=== PATIENT | female | born 1995 | race Caucasian/White ===

== ENCOUNTER → 2017-05-01 20:00 | Observation (INO) ==
[2017-05-01 15:59] LABS: Bilirubin,Urine Small (Negative); Blood,Urine Negative (Negative); Clarity,Urine Cloudy (Clear); Color,Urine Dark Yellow (Yellow); Glucose,Urine (UA) Normal (Normal); Ketones,Urine 15 mg/dL (Negative); Leukocyte Esterase,Urine Small (Negative); Nitrite,Urine Negative (Negative); PH,Urine 6.5 pH Units (5.0-8.0); Protein,Urine Trace mg/dL (Neg-Trace); Specific Gravity,Urine 1.029 (1.010-1.025); Urobilinogen,Urine Normal (Normal)
[2017-05-01 16:00] LABS: Bacteria,Urine Moderate per hpf (None-Few); Hyaline Casts,Urine None Seen per lpf (None-Few); Squamous Epithelial Cell,Urine Many per lpf (None-Few); WBC,Urine 15-30 per hpf (0-3)
--- NOTE | 2017-05-01 17:07 | OB/GYN History & Physical ---
Date of Encounter: 05/01/17 Time of Encounter: 17:05 Assessment and Plan (1) premature rupture of membranes (PPROM) with unknown onset of labor Current visit: Yes Status: Acute Plan to transfer to [facility] for PPROM. [place]estone now. Begin magnesium infusion. Indomethacin for tocolysis PCN for GBS ppx per M request. Transfer to [facility] labor and delivery. Accepting physician is Ronan Soto. (2) 26 weeks gestation of Current visit: Yes Status: Acute (3) Hodgkins lymphoma Current visit: Yes Status: Acute Qualifiers: Hodgkin lymphoma type: unspecified type Lymphoma site: neck Qualified Code(s): C81.91 - Hodgkin lymphoma, unspecified, lymph nodes of head, face, and neck (4) Nausea and vomiting during Current visit: No Status: Acute History of Present Illness Chief complaint: leaking fluid HPI: Ms. Chinchilla is a 21 year old female presenting at 26 weeks 2 days gestation with c/o a gush of fluid when she vomited this afternoon around 1345. She states she was having some cramping earlier in the day and then had the one episode of vomiting with a gush of clear fluid. No cramping, leaking, or vomiting since. Good FM. No VB. She received care with Dr. Barrios and has an EDC of 08/05/17 by LMP confirmed by first trimester ultrasound. This has been complicated by Hodkins Lymphoma for which she was supposed to start chemo tomorrow. No other complications. Blood type O positive Chlam/Lorne negative HIV negative RPR negative Hep B sag negative Hep C negative Rubella immune Normal anatomy ultrasound Past Med Surg Social Fam HX - Past Medical History Medical history: asthma, cancer, kidney stones, other Psychiatric history: depression - Past Surgical History Surgical History: cholecystectomy - Social History Smoking Status: Never smoker Smokeless Tobacco Status: No Alcohol use: none Drug use: none - Family History Father History Unknown: Yes Adopted: No Living Status: Hx Family Cardiac Disorders: No Hx Family Respiratory Disorders: No Hx Family Cancer: No Hx Family GI Disorders: No Hx Family Endocrine Disorder: No Hx Family Neuromuscular Disorders: No Hx Family Neurologic Disorders: No Hx Family HEENT Disorders: No Hx Family Autoimmune Disorders: No Obstetrical History - Pregnancies : 2 Para: 1 Term: 1 : 0 Ab's: 0 Livin Medications and Allergies Vit Calc,Iron,Folic [ Vitamins] 2 tab PO DAILY 05/01/17 [ History] 3 Allergy/AdvReac Type Severity Reaction Status Date / Time codeine Allergy Fever Verified 05/01/17 15:33 promethazine Allergy Fever Verified 05/01/17 15:33 Review of System OB All systems PM: reviewed and no additional remarkable complaints except as stated Exam - Constitutional Constitutional: well developed, well nourished, no acute distress - HEENT HEENT: Mucus Membranes Moist - Neck Neck exam: lymphadenopathy - Lungs Respiratory exam: CTAB - Cardiovascular Cardiovascular exam: RRR - Abdomen Abdomen: Present: gravid, non tender - Extremities Extremities exam: normal inspection - Vulva Vulva: bilateral: normal - Vagina Vagina: Present: normal moisture - Cervix Dilation: 0 Effacement: 0 Station: -3 - Anus/Rectum Anus/Rectum: Present: normal perianal skin - Comments Comments: SSE with scant clear discharge in vault, negative nitrazine, positive fern Results Abnormal lab results Urine Clarity Cloudy (Clear) A 05/01/17 15:46 Ur Specific Early 1.029 (1.010-1.025) H 05/01/17 15:46 Urine Ketones 15 mg/dL (Negative) H 05/01/17 15:46 Urine Bilirubin Small (Negative) H 05/01/17 15:46 Ur Leukocyte Esterase Small (Negative) H 05/01/17 15:46 Urine Microscopic WBC 15-30 per hpf (0-3) H 05/01/17 15:46 Ur Squamous Epith Cells Many per lpf (None-Few) H 05/01/17 15:46 Urine Bacteria Moderate per hpf (None-Few) H 05/01/17 15:46 Ur Culture Indicated? YES (NO) A 05/01/17 15:46 All other labs normal. - VTE Reasons for not Prescribing Prophylaxis: Treatment not Indicated - Low risk for VTE
[2017-05-01 17:49] LABS: Basophils # 0.1 K/mcL (0.0-0.2); Basophils % 0.5 %; Hematocrit 36.3 % (35.3-44.9); Immature Granulocytes % 1.2 % (0-4); Lymphocytes # 1.8 K/mcL (0.6-4.6); Lymphocytes % 12.3 %; Mean Corpuscular HGB Conc 33.1 g/dL (31.6-35.5); Mean Corpuscular Hemoglobin 27.5 pg (28.0-33.3); Mean Corpuscular Volume 83.3 fL (83.0-100.0); Mean Platelet Volume 9.4 fL (9.4-12.4); Monocytes # 0.7 K/mcL (0.0-1.3); Monocytes % 4.8 %; Neutrophils # 11.9 K/mcL (1.6-8.9); Platelet Count 347 K/mcL (140-400); Red Blood Count 4.36 M/mcL (3.82-4.97); Red Cell Distribution Width 13.3 % (11.5-14.5); Segmented Neutrophils % 81.2 %
[~2017-05-01 20:00] MED LIST: Amoxicillin 500 MG CAPSULE PO SCH; Ampicillin 2 GM in 0.9 % Sodium Chloride Mini Bag 100 ML IVPB SCH; Azithromycin 250 MG TABLET PO ONE; Betamethasone Acet/SodPhos 6 MG/ML MDV IM SCH; Calcium Gluconate 1,000 MG/10 ML VIAL IVPB ONE; Indomethacin 25 MG CAPSULE PO ONE; Magnesium Sulfate 20 gm/500mL 20 GM/500 ML IV.SOLN IVC SCH; Penicillin G Potassium 5,000,000 UNIT in D5% in Water (Mini-Bag+) 100 ML IVPB ONE; Ringers Solution, Lactated 1,000 ML IVC SCH
== END ==
LOC: 1NENULAB
PROVIDERS: ADMIT Student in an Organized Health Care Education/Training Program; ATTEND Student in an Organized Health Care Education/Training Program

== ENCOUNTER → 2017-05-29 23:56 | Observation (INO) ==
[2017-05-29 23:17] LABS: Bilirubin,Urine Negative (Negative); Blood,Urine Negative (Negative); Clarity,Urine Clear (Clear); Color,Urine Dark Yellow (Yellow); Glucose,Urine (UA) 500 mg/dL (Normal); Ketones,Urine Negative (Negative); Leukocyte Esterase,Urine Negative (Negative); Nitrite,Urine Negative (Negative); Protein,Urine Trace mg/dL (Neg-Trace); Specific Gravity,Urine 1.029 (1.010-1.025); Urobilinogen,Urine Normal (Normal)
[2017-05-29 23:22] LABS: Bacteria,Urine None Seen per hpf (None-Few); Hyaline Casts,Urine None Seen per lpf (None-Few); RBC,Urine 0-3 per hpf (0-3); Squamous Epithelial Cell,Urine Many per lpf (None-Few); WBC,Urine 0-3 per hpf (0-3)
--- NOTE | 2017-05-29 23:49 | Discharge Summary ---
Date of Encounter: 05/29/17 Time of Encounter: 23:49 - Discharge Diagnosis (1) 31 weeks gestation of Priority: Primary Status: Acute Comments: Admitted to observation for labor eval and NST for decreased movement Follow up with OB physician tomorrow. (2) Decreased movement during in third trimester, antepartum Priority: Secondary Status: Acute Comments: Non stress test Qualifiers: Fetus number: single or unspecified fetus Qualified Code(s): O36.8130 - Decreased movements, third trimester, not applicable or unspecified (3) Non-stress test reactive Priority: Secondary Status: Acute Comments: FHR 140bpm, moderate variability, + 10x10 accels, no decels. Category I tracing. - Discharge Medications Home Medications: Vit Calc,Iron,Folic [ Vitamins] 2 tab PO DAILY 05/01/17 [ History] Allergies/Adverse Reactions: 3 Allergy/AdvReac Type Severity Reaction Status Date / Time codeine Allergy Fever Verified 05/01/17 15:33 promethazine Allergy Fever Verified 05/01/17 15:33 Data Procedures and tests throughout hospitalization: Laboratory Tests 05/29/17 23:00 Urine Color Dark Yellow Urine Clarity Clear Urine pH 7.0 Ur Specific [place] 1.029 H Urine Protein Trace Urine Glucose (UA) 500 H Urine Ketones Negative Urine Blood Negative Urine Nitrite Negative Urine Bilirubin Negative Urine Urobilinogen Normal Ur Leukocyte Esterase Negative Urine Microscopic RBC 0-3 Urine Microscopic WBC 0-3 Ur Squamous Epith Cells Many H Urine Bacteria None Seen Hyaline Casts None Seen Ur Culture Indicated? NO Labs on day of discharge: Labs from last 24 hours 05/29/17 23:00 Urine Color Dark Yellow Urine Clarity Clear Urine pH 7.0 Ur Specific [place] 1.029 H Urine Protein Trace Urine Glucose (UA) 500 H Urine Ketones Negative Urine Blood Negative Urine Nitrite Negative Urine Bilirubin Negative Urine Urobilinogen Normal Ur Leukocyte Esterase Negative Urine Microscopic RBC 0-3 Urine Microscopic WBC 0-3 Ur Squamous Epith Cells Many H Urine Bacteria None Seen Hyaline Casts None Seen Ur Culture Indicated? NO Date of admission: 05/29/17 22:57 Discharging clinician: Aurora Álvarez Anticipated date of discharge: 05/29/17 - Patient Status Disposition: Home, Self-Care Condition: Good Functional capacity at discharge: independent ambulation - Discharge Instructions Follow Up With: Nicola Fields MD [Non-Partnered Physician] - Additional Instructions: Follow up with OB tomorrow. - Diet and Activity Activity: resume usual activities as tolerated Diet: advance to your usual diet Hospital Course [facility] Time Attestation: Total time spent providing and/or coordinating discharge services: Exam - Constitutional Vitals: Temp Resp 97.3 F L 16 05/29/17 23:01 05/29/17 23:01 General appearance IM: A&O X 3 - Respiratory Respiratory exam: Present: CTAB - Cardiovascular Cardiovascular exam IM: Present: RRR, +S1, +S2 - GI/Abdominal GI/Abdominal exam IM: normal bowel sounds - Rectal Rectal exam: deferred - Extremities Exam Extremities exam IM: Present: normal capillary refill, normal inspection - Neurological Exam Neurological exam: alert, oriented X3
[2017-05-30 01:45] LABS: Amphetamine Screen,Urine Negative ng/mL (Cutoff=1000); Barbiturate Screen,Urine Negative ng/mL (Cutoff=200); Benzodiazepines Screen,Urine Negative ng/mL (Cutoff=200); Cannabinoid Screen,Urine Negative ng/mL (Cutoff = 50); Cocaine Screen,Urine Negative ng/mL (Cutoff= 300); Opiate Screen,Urine Negative ng/mL (Cutoff=300); Phencyclidine Screen,Urine Negative ng/mL (Cutoff=25)
== END | disposition home or self-care (01) ==
LOC: 1NENULAB
PROVIDERS: ADMIT Student in an Organized Health Care Education/Training Program; ATTEND Student in an Organized Health Care Education/Training Program

== ENCOUNTER 2020-09-21 16:19 | Observation (INO) ==
[2020-09-21 17:17] LABS: Bacteria,Urine Few per hpf (None-Few); Bilirubin,Urine Negative (Negative); Blood,Urine Large (Negative); Clarity,Urine Turbid (Clear); Color,Urine Yellow (Yellow); Glucose,Urine (UA) 30 mg/dL (Normal); Ketones,Urine Negative (Negative); Leukocyte Esterase,Urine Large (Negative); Mucus,Urine Few per lpf (None-Few); Nitrite,Urine Negative (Negative); PH,Urine 6.5 pH Units (5.0-8.0); Protein,Urine 50 mg/dL (Neg-Trace); RBC,Urine TNTC per hpf (0-3); Squamous Epithelial Cell,Urine Few per hpf (None-Few); Urobilinogen,Urine Normal (Normal); WBC,Urine TNTC per hpf (0-3)
[2020-09-21 20:27] LABS: Candida DNA DETECTED (Not Detect); Gardnerella DNA Not Detected (Not Detect); Trichomonas DNA Not Detected (Not Detect)
== END 2020-09-21 18:03 | disposition home or self-care (01) ==
LOC: 1NENULAB
PROVIDERS: ADMIT Obstetrics & Gynecology; ATTEND Obstetrics & Gynecology

== ENCOUNTER → 2020-11-21 17:52 | Observation (INO) ==
[2020-11-21 10:26] LABS: Bacteria,Urine Few per hpf (None-Few); Bilirubin,Urine Negative (Negative); Blood,Urine Negative (Negative); Clarity,Urine Turbid (Clear); Color,Urine Yellow (Yellow); Glucose,Urine (UA) Normal (Normal); Ketones,Urine 20 mg/dL (Negative); Leukocyte Esterase,Urine Large (Negative); Mucus,Urine Few per lpf (None-Few); Nitrite,Urine Negative (Negative); PH,Urine 7.5 pH Units (5.0-8.0); Protein,Urine 30 mg/dL (Neg-Trace); Specific Gravity,Urine 1.022 (1.010-1.025); Squamous Epithelial Cell,Urine Moderate per hpf (None-Few); Urobilinogen,Urine Normal (Normal)
[~2020-11-21 17:52] MED LIST changes: -Amoxicillin 500 MG CAPSULE PO SCH; -Ampicillin 2 GM in 0.9 % Sodium Chloride Mini Bag 100 ML IVPB SCH; -Azithromycin 250 MG TABLET PO ONE; -Betamethasone Acet/SodPhos 6 MG/ML MDV IM SCH; -Calcium Gluconate 1,000 MG/10 ML VIAL IVPB ONE; -Indomethacin 25 MG CAPSULE PO ONE; -Magnesium Sulfate 20 gm/500mL 20 GM/500 ML IV.SOLN IVC SCH; +Ondansetron ODT 4 MG TAB.RAPDIS SL ONE; -Penicillin G Potassium 5,000,000 UNIT in D5% in Water (Mini-Bag+) 100 ML IVPB ONE; -Ringers Solution, Lactated 1,000 ML IVC SCH
== END | disposition home or self-care (01) ==
LOC: 1NENULAB
PROVIDERS: ADMIT Advanced Practice Midwife; ATTEND Advanced Practice Midwife

== ENCOUNTER 2020-12-07 04:00 | Inpatient (IN) ==
[2020-12-07] MEDS ORDERED: Metoclopramide 10 MG/2 ML VIAL IVP PRN (04:05)
[2020-12-07] MEDS ORDERED: Ondansetron 4 MG/2 ML VIAL IVP PRN (04:05)
[2020-12-07] MEDS ORDERED: *HR* Nalbuphine 10 MG/ML AMPUL IV PRN (04:05)
[2020-12-07] MEDS ORDERED: Naloxone 0.4 MG/ML INJ IVP PRN (04:05)
[2020-12-07] MEDS ORDERED: Famotidine 20 MG/2 ML VIAL IVP PRN (04:05)
[2020-12-07] MEDS ORDERED: miSOPROStoL 25 MCG TABLET PO PRN (04:12)
[2020-12-07 05:21] LABS: Basophils # 0.1 K/mcL (0.0-0.2); Basophils % 0.7 %; Hematocrit 34.9 % (35.3-44.9); Hemoglobin 12.1 g/dL (11.5-15.4); Immature Granulocytes % 1.4 % (0-4); Lymphocytes # 2.2 K/mcL (0.6-4.6); Lymphocytes % 20.2 %; Mean Corpuscular HGB Conc 34.7 g/dL (31.6-35.5); Mean Corpuscular Hemoglobin 31.5 pg (28.0-33.3); Mean Corpuscular Volume 90.9 fL (83.0-100.0); Mean Platelet Volume 9.5 fL (9.4-12.4); Monocytes # 1.1 K/mcL (0.0-1.3); Monocytes % 9.7 %; Neutrophils # 7.5 K/mcL (1.6-8.9); Platelet Count 255 K/mcL (140-400); Red Blood Count 3.84 M/mcL (3.82-4.97); Red Cell Distribution Width 12.3 % (11.5-14.5)
[2020-12-07 05:27] LABS: Amphetamine Screen,Urine Negative ng/mL (Cutoff=1000); Barbiturate Screen,Urine Negative ng/mL (Cutoff=200); Benzodiazepines Screen,Urine Negative ng/mL (Cutoff=200); Cannabinoid Screen,Urine Negative ng/mL (Cutoff = 50); Cocaine Screen,Urine Negative ng/mL (Cutoff= 300); Opiate Screen,Urine Negative ng/mL (Cutoff=300); Phencyclidine Screen,Urine Negative ng/mL (Cutoff=25)
[2020-12-07 06:15] LABS: Adenovirus Not Detected (Not Detect); Bordetella Pertussis Not Detected (Not Detect); Chlamydophila pneumoniae Not Detected (Not Detect); Coronavirus 229E Not Detected (Not Detect); Coronavirus HKU1 Not Detected (Not Detect); Coronavirus NL63 DETECTED (Not Detect); Coronavirus OC43 Not Detected (Not Detect); Human Metapneumovirus Not Detected (Not Detect); Human Rhinovirus/Enterovirus Not Detected (Not Detect); Influenza A Subtype 2009 H1 Not Detected (Not Detect); Influenza B Not Detected (Not Detect); Mycoplasma pneumoniae Not Detected (Not Detect); Parainfluenza Virus 1 Not Detected (Not Detect); Parainfluenza Virus 2 Not Detected (Not Detect); Parainfluenza Virus 3 Not Detected (Not Detect); Parainfluenza Virus 4 Not Detected (Not Detect); Respiratory Syncytial Virus Not Detected (Not Detect); SARS-CoV-2 Not Detected (Not Detect)
[2020-12-07] MEDS ORDERED: Oxytocin 20 units/ LR 1000 mL 20 UNIT/1,000 ML BAG IVC SCH ×2 (06:15→14:41)
[2020-12-07] MEDS: Ringers Solution, Lactated 1,000 ML IVC SCH ×2 (06:22→12:15)
[2020-12-07] MEDS ORDERED: EPHEDrine 50 MG/ML VIAL IVP PRN (08:55)
[2020-12-07] MEDS ORDERED: Epidural Premix (fent/bupiv) 110 ML EP SCH (09:00)
[2020-12-07] MEDS ORDERED: *HR* FentaNYL (PF) 100 MCG/2 ML VIAL ONE (10:48)
[2020-12-07] MEDS ORDERED: Ropivacaine/PF 0.2% 20 ML VIAL ONE (10:48)
[2020-12-07] MEDS ORDERED: Measles/Mumps/Rubella Vacc 0.5 ML VIAL SQ PRN (14:41)
[2020-12-07] MEDS ORDERED: Lanolin 7 G OINT...G. TP PRN (14:41)
[2020-12-07] MEDS ORDERED: Acetaminophen 325 MG TABLET PO PRN (14:41)
[2020-12-07] MEDS ORDERED: Benzocaine/Menthol 56 GM AEROSOL SPRAY TP PRN (14:41)
[2020-12-07] MEDS ORDERED: Oxytocin 20 units/ LR 1000 mL 20 UNIT/1,000 ML BAG IVC ONE (14:41)
[2020-12-07] MEDS ORDERED: Ibuprofen 600 MG TABLET PO PRN (14:41)
[2020-12-07] MEDS ORDERED: Rho Immune Globulin 1,500 UNIT SYRINGE IM PRN (14:41)
[2020-12-08 04:42] VITALS: BP 104/64
[2020-12-08 05:04] LABS: Basophils # 0.1 K/mcL (0.0-0.2); Basophils % 0.6 %; Hematocrit 36.9 % (35.3-44.9); Hemoglobin 12.6 g/dL (11.5-15.4); Immature Granulocytes % 0.9 % (0-4); Lymphocytes # 1.4 K/mcL (0.6-4.6); Lymphocytes % 10.7 %; Mean Corpuscular HGB Conc 34.1 g/dL (31.6-35.5); Mean Corpuscular Volume 93.7 fL (83.0-100.0); Mean Platelet Volume 9.7 fL (9.4-12.4); Monocytes # 1.2 K/mcL (0.0-1.3); Monocytes % 9.4 %; Platelet Count 188 K/mcL (140-400); Red Blood Count 3.94 M/mcL (3.82-4.97); Red Cell Distribution Width 12.2 % (11.5-14.5); Segmented Neutrophils % 78.4 %; White Blood Count 12.7 K/mcL (4.3-11.1)
[2020-12-08] MEDS ORDERED: Prenatal Vit/FA 1 EACH TABLET PO SCH (09:00)
[2020-12-08] MEDS ORDERED: NON-FORMULARY MEDICATION 1 EACH EACH (Prenatal Vitamin Tablet 1 TAB) PO SCH (09:00)
== END 2020-12-08 15:37 | disposition home or self-care (01) | DRG 560 ==
LOC: 1NENULAB 04:03 → 1NENUOBS 16:44
PROVIDERS: ADMIT Student in an Organized Health Care Education/Training Program; ATTEND Student in an Organized Health Care Education/Training Program